=== PATIENT | male | born 2000 | race African-American/Black ===

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

== ENCOUNTER 2022-04-21 09:50 | Outpatient (RCR) | payer OTHER | END 2022-04-25 | disposition home or self-care (01) | PROVIDERS: ATTEND Family Medicine Sports Medicine | DX: S76.112D Strain of left quadriceps muscle, fascia and tendon, subsequent encounter (principal); X58.XXXD Exposure to other specified factors, subsequent encounter ==

== ENCOUNTER 2022-04-27 08:36 | Outpatient (RCR) | payer OTHER | END 2022-05-23 | disposition home or self-care (01) | PROVIDERS: ATTEND Family Medicine Sports Medicine | DX: S76.112D Strain of left quadriceps muscle, fascia and tendon, subsequent encounter (principal); X58.XXXD Exposure to other specified factors, subsequent encounter ==